=== PATIENT | male | born 1995 | race Caucasian/White ===

== ENCOUNTER 2019-11-20 10:37 | Emergency (ER) | payer BC, SELFPAY ==
--- NOTE | 2019-11-20 10:47 | ED.HA ---
HPI - Headache General Chief Complaint: Headache Stated Complaint: MATT Source: patient and RN notes reviewed Mode of arrival: ambulatory Limitations: no limitations History of Present Illness HPI Narrative: The obese patient, non-smoker/nondrinker, presents with 1 day worsening of over 10-year history of headaches. Patient states she has a gradual onset yesterday of frontal headache, like previous headaches that she gets bimonthly. No fever, URI?sinusitis, loss of taste/smell, lateralizing weakness, prior injury, speech?visual changes [eye prescription is current last month, as well as dentist visits]. Family members also have headaches, and she attributes it to insomnia sometimes [not menses, foods]. Symptoms are mild, w/ positional lightheadedness, associated with nausea-but not vomiting like in the past, so not the worst headache. And they 're usually relieved with OTC preparations like Motrin -that she is already taken without relief. Related Data Home Medications Medication Instructions Recorded Confirmed omeprazole 40 mg PO DAILY 11/20/19 11/20/19 Allergies Allergy/AdvReac Type Severity Reaction Status Date / Time No Known Allergies Allergy Verified 11/20/19 10:55 Review of Systems Review of Systems: Narrative: General/Constitutional: No weight loss,fever Eyes: N0: Redness,discharge Ears/Nose/Throat: No: Epistaxis,ear discharge Respiratory: Denies: Hemoptysis Gastrointestinal: No Vomiting today , Bleeding-rectal Skin: No Lumps, eruption Neurologic: No Focal Weakness,Sz Hematologic: Denies: Petechiae/Purpura Psychiatric: No: Suicida ideationl All Other Systems: Reviewed and Negative PMFSH Comments At time of signature, agree with nursing past medical, surgical, social and family history. There is no relevant family history pertinent to the presenting complaint Exam Narrative: Exam Narrative: General Appearance: Well appearing, No distress EYE: PERRLA, Conjunctiva clear Neurological: A&O x3, CN II-X intact Ears: External ear normal Nose: Normal nose Mouth/Throat: Normal appearing, Normal lips Neck: Supple Respiratory: Airway patent, No respiratory distress Musculoskeletal: Full ROM Skin: Warm, Dry Psychiatric: Normal mood, Normal affect Course Vital Signs Vital signs: Vital Signs Temperature 97.3 F L 11/20/19 10:53 Pulse Rate 65 11/20/19 10:53 Respiratory Rate 20 11/20/19 10:53 Blood Pressure 137/75 11/20/19 10:53 Pulse Oximetry 100 11/20/19 10:53 Temperature 97.3 F L 11/20/19 10:53 Pulse Rate 65 11/20/19 10:53 Respiratory Rate 20 11/20/19 10:53 Blood Pressure 137/75 11/20/19 10:53 Pulse Oximetry 100 11/20/19 10:53 Discharge Plan Discharge Clinical Impression: Headache disorder Patient Disposition: Home, Self-Care Condition: Stable Instructions: Migraine Headache (ED) Additional Instructions: Advised to go to higher-level care facility to higher level testing if not improved , because for early diagnosis of serious problems [sinus disease,lesions, etc], clear specific symptoms early Prescriptions: New tramadol 50 mg tablet 50 mg PO Q6H PRN (Reason: pain) Qty: 15 RF: 1 esqujpodim-fxsmpocuvgruw-rlzl [Fioricet] 50-300-40 mg capsule 1 cap PO HS PRN (Reason: pain) Qty: 14 RF: 0 prochlorperazine maleate [Compazine] 10 mg tablet 10 mg PO Q8H PRN (Reason: nausea and vomiting) Qty: 10 RF: 1 No Action omeprazole 40 mg Capsule,Delayed Release(Dr/Ec) 40 mg PO DAILY RF: 0 Interventions: Discharge Disposition Last Done: 11/20/19 11:19 Follow-up/Referrals: UNKNOWN,DOCTOR [Primary Care Provider] - Discharge Date/Time: 11/20/19 11:20
[2019-11-20 10:53] VITALS: BP 137/75; PULSE 65; RESP 20; TEMP 36.3; O2SAT 100
== END 2019-11-20 11:20 | disposition home or self-care (01) ==
PROVIDERS: Emergency Provider Emergency Medicine
DX: R51 Headache (principal); E66.9 Obesity, unspecified; Z68.43 Body mass index [BMI] 50.0-59.9, adult
CPT/HCPCS: 99213; G0463

== ENCOUNTER 2020-01-20 16:27 | Outpatient (CLI) | payer BC, OTHER, SELFPAY ==
--- NOTE | ~2020-01-20 | US_ITS ---
EXAMINATION: US pelvic complete w TV DATE: 01/20/2020 17:01 INDICATION: Pelvic pain TECHNIQUE: Multiple transabdominal and endovaginal sonographic images of the pelvis were obtained. COMPARISON: None. FINDINGS: The uterus measures 8.4 x 4.3 x 6.0 cm. The endometrial complex measures 7 mm nabothian cys ts are noted in the cervix. The right ovary measures 3.4 x 2.3 x 2.5 cm. The left ovary measures 2.9 x 1.9 x 2.2 cm. There is normal vascular flow in the ovaries. There is no free fluid in the pelvis. IMPRESSION: 1. No sonographic correlate for the patient's symptoms. Reviewed, dictated and finalized at location A.
== END 2020-01-20 16:28 | disposition home or self-care (01) ==
PROVIDERS: PCP Nurse Practitioner; Visit Provider Nurse Practitioner
DX: R10.2 Pelvic and perineal pain (principal)
CPT/HCPCS: 76830; 76856

== ENCOUNTER 2020-04-22 11:36 | Emergency (ER) | payer OTHER, SELFPAY ==
[2020-04-22 11:43] VITALS: BP 133/77; PULSE 66; RESP 17; TEMP 36.5; O2SAT 100
--- NOTE | 2020-04-22 11:56 | ED.ABDPAIN ---
HPI - Abdominal Pain General Chief Complaint: Abdominal Pain Stated Complaint: lower abdominal pain Time Seen by Provider: 04/22/20 11:43 Source: patient Mode of arrival: ambulatory Limitations: no limitations History of Present Illness HPI narrative: Patient is a 25-year-old female complaining of lower abdominal pain, 3 out of 10, described as cramping, nonradiating started 30 minutes ago. Patient denies any nausea, vomiting, diarrhea, fever, chills or urinary symptoms. Patient denies any vaginal bleeding or discharge. Related Data Home Medications Medication Instructions Recorded Confirmed omeprazole 40 mg PO DAILY 11/20/19 11/20/19 Allergies Allergy/AdvReac Type Severity Reaction Status Date / Time mushroom Allergy Mild hives Verified 04/22/20 11:49 Review of Systems Review of Systems: All systems reviewed & are unremarkable except as noted in HPI and below Constitutional: Constitutional: Denies body ache(s), Denies chills, Denies excessive sweating, Denies fatigue, Denies fever(s), Denies headache(s), Denies lethargy, Denies malaise, Denies weakness and Denies weight loss Eyes: Eyes: Denies blurry vision, Denies change in vision and Denies loss of vision ENT: Denies dizziness, Denies ear discharge, Denies headache(s), Denies lip swelling, Denies epistaxis, Denies nasal congestion, Denies neck pain, Denies throat swelling and Denies tongue swelling Cardiovascular: Cardiovascular: Denies chest pain, Denies chest pain at rest, Denies chest pain with activity, Denies diaphoresis, Denies rapid heart rate, Denies edema, Denies irregular heart rhythm, Denies lightheadedness, Denies palpitations, Denies dyspnea and Denies dyspnea on exertion Respiratory: Respiratory: Denies chest congestion, Denies cough, Denies hemoptysis, Denies dyspnea and Denies dyspnea on exertion Gastrointestinal: Gastrointestinal: Denies melena, Denies hematochezia, Denies diarrhea, Denies nausea, Denies vomiting and Denies hematemesis Musculoskeletal: Musculoskeletal: Denies abnormal gait, Denies deformity, Denies joint swelling, Denies limited range of motion, Denies neck pain and Denies numbness Neurologic: Denies Abnormal speech present, Denies abnormal gait, Denies confusion, Denies dizziness, Denies headache(s), Denies focal weakness, Denies loss of vision, Denies numbness, Denies Other visual disturbances, Denies Sensory deficit (Neuro) and Denies weakness Psychiatric: Psychiatric: Denies confusion, Denies depression, Denies auditory hallucinations, Denies homicidal ideation and Denies suicidal ideation Endocrine: Endocrine: Denies cold intolerance, Denies excessive sweating, Denies fatigue, Denies heat intolerance and Denies palpitations Hematologic/Lymphatic: Hematologic/Lymphatic: Denies easy bleeding and Denies easy bruising Allergic/Immunologic: Allergic/Immunologic: Denies lip swelling, Denies throat swelling and Denies tongue swelling PMFSH Past Medical History Medical History (Updated 04/22/20 @ 13:13 by Lex Guerin MD) Gestational diabetes Family History Family History (Updated 02/26/20 @ 10:04 by Alexandra Abdullahi MD) Mother Diabetes mellitus Heart disease Hypertension Cervical ca Father Heart disease Kidney disease, chronic, stage IV (GFR 15-29 ml/min) Social History Social History (Updated 02/26/20 @ 09:43 by Tika Flores) Social History: Single Smoking status: Never smoker Second hand tobacco smoke exposure: No Alcohol intake: current Drinks per week: 2 Substance use: current Substance use type: marijuana Last use: Once a month pt smokes marijuana Additional living arrangements comments: Pt has a daughter that lives with her Gender identity (if verbalized by the patient): Female Exam Const: General: cooperative, healthy appearing, comfortable, no acute distress, well developed, alert and awake; No confusion Orientation/consciousness: oriented to person, orie
[2020-04-22 12:05] LABS: Basophils Percent Auto 0.4 % (0.2-1.2); Eosinophils Absolute Auto 0.2 K/mm3 (0-0.3); Eosinophils Percent Auto 2.4 % (0-4.4); Hematocrit 36.8 % (37.0-47.0); Hemoglobin 11.4 g/dL (12.0-15.0); Immature Granulocyte Absolute 0.09 K/mm3 (0.00-0.031); Lymphocytes Absolute Auto 3.26 K/mm3 (0.9-3.2); Lymphocytes Percent Auto 36.5 % (18.3-44.2); Mean Corpuscular Hemoglobin 27.5 pg (26-34); Mean Corpuscular Volume 88.9 fl (80-100); Mean Platelet Volume 12.2 fl (7.4-10.4); Monocytes Absolute Auto 0.8 K/mm3 (0.1-0.6); Monocytes Percent Auto 9.3 % (2.6-8.5); Neutrophils Absolute Auto 4.5 K/mm3 (1.3-6.7); Neutrophils Percent Auto 50.4 % (45.5-73.1); Platelet Count Result 312 k/mm3 (150-375); Red Blood Count 4.14 M/mm3 (4.2-5.4); Red Cell Distribution Width 15.1 % (11.5-14.5); White Blood Count 8.9 K/mm3 (4.5-10.0)
[2020-04-22 12:12] LABS: Add Urine Microscopic? YES; Appearance Urine Clear (Clear); Bacteria Urine Trace /hpf; Bilirubin Urine Negative (Negative); Blood Urine Negative (Negative); Color Urine Yellow (Yellow); Glucose Urine UA Negative (Negative); Ketones Urine Negative (Negative); Leukocyte Esterase Ur Trace LEU/UL (Negative); Mucus Urine Rare /lpf; Nitrate Urine Negative (Negative); Protein Urine 2+ mg/dL (Negative); RBC Urine 0-2 /hpf (0-2); Specific Grav Ur 1.015 (1.001-1.035); Squamous Epithelial Cell Urine Many /hpf (Few); Urobilinogen Urine Negative mg/dL (<2.0); WBC Urine 0-3 /hpf
[2020-04-22 12:13] LABS: Alanine Aminotransferase 30 U/L (4-35); Albumin Level 4.3 g/dL (3.5-5.1); Alkaline Phosphatase 98 U/L (38-126); Anion Gap 8 mmol/L (8-16); Aspartate Amino Transferase 39 U/L (14-36); Bilirubin,Total 0.3 mg/dL (0.2-1.3); Blood Urea Nitrogen 7 mg/dL (7-17); Calcium 9.4 mg/dL (8.4-10.2); Carbon Dioxide 29 mmol/L (22-30); Chloride 101 mmol/L (98-107); Estimated CRCL calculation 122 ml/min; Estimated Glomerular Filt Rate > 60; Glucose 102 mg/dL (65-105); Lipase 79 U/L (23-300); Potassium 4.1 mmol/L (3.4-5.0); Sodium 138 mmol/L (137-145)
[2020-04-22] MEDS: ACETAMINOPHEN 500 MG TABLET 1000 MG PO (12:46)
[2020-04-22] MEDS: KETOROLAC 30 MG/ML VIAL (*BKC) IV PUSH (12:46)
[2020-04-22 12:47] VITALS: BP 148/90; PULSE 63; RESP 16; O2SAT 100
[2020-04-22 13:39] VITALS: BP 112/78; PULSE 88; RESP 17; O2SAT 99
== END 2020-04-22 13:40 | disposition home or self-care (01) ==
PROVIDERS: Emergency Provider Emergency Medicine; PCP Family Medicine
DX: R10.30 Lower abdominal pain, unspecified (principal)
CPT/HCPCS: 36415; 80053; 81001; 81025; 83690; 85025; 96374; 99284; A9270; J1885

== ENCOUNTER 2021-09-22 12:55 | Day surgery (SDC) | payer OTHER, SELFPAY ==
[2021-09-22] VITALS (14 sets, daily range): BP systolic 120–160; BP diastolic 59–92; PULSE 56–93; RESP 14–20; TEMP 36.2–36.7; O2SAT 16–100
--- NOTE | ~2021-09-22 | CT_ITS ---
EXAMINATION: CT abdomen pelvis wo con DATE: 09/22/2021 16:20 INDICATION: Right lower quadrant abdominal pain TECHNIQUE: Computed tomography (CT) of the abdomen and pelvis was performed without intravenous contr ast. Automated exposure control and iterative reconstruction technique were employed. Exam dose: 125 1.86 mGy-cm total exam DLP. COMPARISON: None. FINDINGS: The lung bases are clear. Heart size is normal. No pericardial or pleural effusion. Status post cholecystectomy. The liver, spleen, pancreas, and adrenal glands and kidneys are unremarkable. No bile duct or pancrea tic duct dilatation. The uterus, adnexal areas and urinary bladder are unremarkable. Normal caliber of the abdominal aorta. No intraperitoneal or retroperitoneal or pelvic mass lesion or adenopathy or ascites. There is a 5 x 6.7 mm calcified appendicolith at the tip of the appendix. Appendix is of normal calib er. No periappendiceal fat stranding or fluid. There are some distal small bowel air-fluid levels, in the lower mid pelvis, suggesting mild adynamic ileus. No bowel obstruction, bowel wall thickening, pneumatosis or intraperitoneal free air. Small fat-containing umbilical hernia. IMPRESSION: 5 x 6.7 mm calcified appendicolith at the tip of the appendix and mild adynamic ileus; a ppendicitis or impending appendicitis is suspected. Reviewed, dictated and finalized at [facility]. Reviewed, dictated and finalized at [facility]. IMPRESSION: 5 x 6.7 mm calcified appendicolith at the tip of the appendix and mild adynamic ileus; appendicitis or impending appendicitis is suspected.
--- NOTE | ~2021-09-22 | US_ITS ---
EXAMINATION: US pelvic complete w TV DATE: 09/22/2021 15:51 INDICATION: Right adnexal pain. TECHNIQUE: Multiple transabdominal and transvaginal sonographic images of the pelvis were obtained. COMPARISON: Ultrasound 01/20/2020 FINDINGS: TRANSABDOMINAL ULTRASOUND: The uterus measures 7.1 x 4.5 x 4.5 cm. There is no free fluid in the pelvis. TRANSVAGINAL ULTRASOUND: The endometrial complex measures 10 mm in thickness. There are nabothian cysts in the cervix. The rig ht ovary measures 3.3 x 1.8 x 2.3 cm. The left ovary measures 2.0 x 4.1 x 2.3 cm. There is normal vas cular flow in the ovaries. IMPRESSION: 1. Normal pelvis. Reviewed, dictated and finalized at [facility]. IMPRESSION: 1. Normal pelvis.
[2021-09-22 13:18] LABS: Basophils Absolute Auto 0.1 K/mm3 (0.0-0.1); Basophils Percent Auto 0.6 % (0.2-1.2); Eosinophils Absolute Auto 0.1 K/mm3 (0-0.3); Hematocrit 37.9 % (37.0-47.0); Hemoglobin 11.5 g/dL (12.0-15.0); Immature Granulocyte Absolute 0.03 K/mm3 (0.00-0.031); Immature Granulocyte Percent A 0.3 % (0-0.5); Lymphocytes Absolute Auto 2.77 K/mm3 (0.9-3.2); Lymphocytes Percent Auto 29.9 % (18.3-44.2); Mean Corpuscular HGB Conc 30.3 g/dl (32-36); Mean Corpuscular Hemoglobin 27.6 pg (26-34); Mean Corpuscular Volume 90.9 fl (80-100); Mean Platelet Volume 12.7 fl (7.4-10.4); Monocytes Absolute Auto 0.7 K/mm3 (0.1-0.6); Monocytes Percent Auto 7.1 % (2.6-8.5); Neutrophils Absolute Auto 5.7 K/mm3 (1.3-6.7); Neutrophils Percent Auto 61.1 % (45.5-73.1); Platelet Count Result 251 k/mm3 (150-375); Red Blood Count 4.17 M/mm3 (4.2-5.4); Red Cell Distribution Width 15.9 % (11.5-14.5); White Blood Count 9.3 K/mm3 (4.5-10.0)
[2021-09-22 13:35] LABS: Alanine Aminotransferase 32 U/L (6-35); Albumin Level 4.7 g/dL (3.5-5.1); Alkaline Phosphatase 96 U/L (38-126); Anion Gap 6 mmol/L (8-16); Aspartate Amino Transferase 37 U/L (14-36); Bilirubin,Total 0.6 mg/dL (0.2-1.3); Blood Urea Nitrogen 7 mg/dL (7-17); Calcium 9.1 mg/dL (8.4-10.2); Carbon Dioxide 24 mmol/L (22-30); Chloride 107 mmol/L (98-107); Estimated CRCL calculation 89 ml/min; Estimated Glomerular Filt Rate > 60; Glucose 101 mg/dL (65-110); Lipase 75 U/L (23-300); Potassium 4.2 mmol/L (3.4-5.0); Sodium 137 mmol/L (137-145)
[2021-09-22 13:36] LABS: Appearance Urine Slightly Cloudy (Clear); Bilirubin Urine Negative (Negative); Blood Urine Negative (Negative); Color Urine Yellow (Yellow); Glucose Urine UA Negative (Negative); Ketones Urine Negative (Negative); Leukocyte Esterase Ur 1+ LEU/UL (Negative); Nitrate Urine Negative (Negative); Protein Urine 2+ mg/dL (Negative); Specific Grav Ur 1.025 (1.001-1.035); Urobilinogen Urine 0.2 mg/dL (<2.0); pH Urine 6.5 (5.0-9.0)
[2021-09-22 13:42] LABS: Add Urine Microscopic? YES
--- NOTE | 2021-09-22 14:31 | PC.NURSE ---
pt to desk asking for wait time. pt upset she has seen 3 other people go into back before her. it was explained to pt that we do not bring pts to rooms based on arrival time.
--- NOTE | 2021-09-22 15:20 | PC.NURSE ---
Patient to ultrasound.
[2021-09-22] MEDS: MORPHINE SULFATE (*CRX) 4 MG/ML INJ IV PUSH (16:11)
[2021-09-22] MEDS: ONDANSETRON INJ 4 MG/2 ML VIAL IV PUSH (16:11)
--- NOTE | 2021-09-22 16:44 | ED.ABDPAIN ---
HPI - Abdominal Pain General Chief Complaint: Abdominal Pain Stated Complaint: pelvic pain Time Seen by Provider: 09/22/21 15:14 History of Present Illness HPI narrative: Patient is a 26-year-old female who presents ER with lower abdominal pain. Began last night and has increased throughout the evening and the day. She feels like she has pressure going into her pelvic floor. Pain is worse on the right side. No nausea or vomiting. Worse with any type of movement. Most comfortable if she is standing up. Has history of PCOS. No vaginal bleeding or vaginal discharge. LMP 09/07/2021. No concerns for STI per patient. Related Data Allergies Allergy/AdvReac Type Severity Reaction Status Date / Time mushroom Allergy Mild hives Verified 09/22/21 18:13 Review of Systems Review of Systems: All systems reviewed & are unremarkable except as noted in HPI and below Constitutional: Constitutional: Denies chills and Denies fever(s) Gastrointestinal: Gastrointestinal: Reports abdominal pain, Denies constipation, Denies nausea and Denies vomiting Genitourinary: Genitourinary: Denies abnormal vaginal bleeding, Denies hematuria, Denies nocturia, Denies dysuria, Reports pelvic pain, Denies flank pain and Denies vaginal discharge Musculoskeletal: Musculoskeletal: Denies back pain and Denies muscle cramps PMFSH Past Medical History Medical History Abnormal Pap smear of cervix 2020 Anemia Anxiety Asthma Chronic GERD Morbid (severe) obesity due to excess calories Polycystic ovary syndrome Vaginal delivery x1 Surgical History Surgical History History of cholecystectomy 11/2011 History of tonsillectomy 2016 Family History Family History Mother Diabetes mellitus Heart disease Cervical ca Dx age 25 Anxiety and depression Father Heart disease Kidney disease, chronic, stage IV (GFR 15-29 ml/min) Asthma Lung cancer Hypertension Anxiety and depression Daughter Asthma Grandparent Lung cancer Anxiety and depression Heart disease Sibling Anxiety and depression Social History Social History Smoking status: Never smoker Second hand tobacco smoke exposure: No Alcohol intake: current Alcohol use details: socially Substance use: current Substance use type: marijuana Last use: occassionally Additional living arrangements comments: Pt has a daughter that lives with her Gender identity (if verbalized by the patient): Female Sexual Orientation (if Verbalized by the Patient): Straight or Heterosexual Agree to blood products: Yes Exam Narrative: GENERAL: Uncomfortable-appearing, well-nourished, and in no acute distress. HEAD: Normocephalic, atraumatic. EYES: PERRL and EOMI. ENT: Mucous membranes moist. CHEST: Clear to auscultation. No respiratory distress. HEART: Regular rate and rhythm. Normal peripheral pulses. ABDOMEN: Soft, tender palpation right lower quadrant with guarding, nondistended. EXTREMITIES: Normal range of motion. No edema. SKIN: Warm, dry, no rash. NEURO: Alert and oriented x3. PSYCH: Normal mood and affect. Course Course Emergency Course: Discussed with general surgery. They will take patient to the operating room tonight. Patient last had water at 12:30 PM. She has not eaten since yesterday. Zafra for antibiotic. Vital Signs Vital signs: Vital Signs Temperature 98.1 F 09/22/21 12:56 Pulse Rate 62 09/22/21 12:56 Respiratory Rate 16 09/22/21 12:56 Blood Pressure 139/60 09/22/21 12:56 Pulse Oximetry 16 L 09/22/21 12:56 Oxygen Delivery Room Air 09/22/21 12:56 Temperature 97.6 F 09/22/21 18:05 Pulse Rate 56 L 09/22/21 18:05 Respiratory Rate 14 09/22/21 18:05 Blood Pressure 120/75 09/22/21 18:05 Pulse Oximetry
--- NOTE | 2021-09-22 17:34 | WPDANESEPP ---
Anes - Eval Pre Procedure Procedure: Laparoscopic appendectomy Date/Time: 09/22/21 17:34 Surgeon: ruy Preop Diagnosis: acute appendicitis Pre Op Diagnosis: pelvic pain Patient Data Age: 26 Gender: F Height: 1.57 m Weight: 114.3 kg Last Vital Signs Temp 36.7 C 09/22/21 16:41 Pulse 67 09/22/21 15:20 Resp 18 09/22/21 15:20 BP 160/72 H 09/22/21 15:20 Pulse Ox 100 09/22/21 15:20 O2 Del Method Room Air 09/22/21 15:20 Allergies Allergy/AdvReac Type Severity Reaction Status Date / Time mushroom Allergy Mild hives Verified 06/01/21 09:50 Home Medications Medication Instructions Recorded Confirmed Type albuterol sulfate 90 mcg/actuation 2 inh inhalation Q4H PRN shortness 11/03/20 11/03/20 Rx aerosol inhaler (ProAir HFA) of breath or wheezing #8.5 grams etonogestrel 0.12 mg-ethinyl 1 vag ring vaginal ONCE #3 ea 07/22/21 Rx estradiol 0.015 mg/24 hr vaginal ring (NuvaRing) Laboratory Tests 09/22/21 09/22/21 09/22/21 13:07 13:07 13:07 WBC 9.3 K/mm3 K/mm3 (4.5-10.0) RBC 4.17 M/mm3 L M/mm3 (4.2-5.4) Hgb 11.5 g/dL L g/dL (12.0-15.0) Hct 37.9 % % (37.0-47.0) MCV 90.9 fl fl (80-100) MCH 27.6 pg pg (26-34) MCHC 30.3 g/dl L g/dl (32-36) RDW 15.9 % H % (11.5-14.5) Plt Count 251 k/mm3 k/mm3 (150-375) MPV 12.7 fl H fl (7.4-10.4) Immature Gran % (Auto) 0.3 % % (0-0.5) Neut % (Auto) 61.1 % % (45.5-73.1) Lymph % (Auto) 29.9 % % (18.3-44.2) [place] % (Auto) 7.1 % % (2.6-8.5) Eos % (Auto) 1.0 % % (0-4.4) Baso % (Auto) 0.6 % % (0.2-1.2) Lymph # (Auto) 2.77 K/mm3 K/mm3 (0.9-3.2) [place] # (Auto) 0.7 K/mm3 H K/mm3 (0.1-0.6) Eos # (Auto) 0.1 K/mm3 K/mm3 (0-0.3) Baso # (Auto) 0.1 K/mm3 K/mm3 (0.0-0.1) Abs Immat Gran (auto) 0.03 K/mm3 K/mm3 (0.00-0.031) Absolute Neuts (auto) 5.7 K/mm3 K/mm3 (1.3-6.7) Absolute Nucleated RBC 0.0 K/mm3 K/mm3 (0.0-0.012) Nucleated RBC % 0.0 % % (0.0-0.2) Sodium 137 mmol/L mmol/L (137-145) Potassium 4.2 mmol/L mmol/L (3.4-5.0) Chloride 107 mmol/L mmol/L (98-107) Carbon Dioxide 24 mmol/L mmol/L (22-30) Anion Gap 6 mmol/L L mmol/L (8-16) BUN 7 mg/dL mg/dL (7-17) Creatinine 1.00 mg/dL mg/dL (0.7-1.0) Estim Creat Clear Calc 89 ml/min ml/min Estimated GFR > 60 (59 - ) Glucose 101 mg/dL mg/dL (65-110) Calcium 9.1 mg/dL mg/dL (8.4-10.2) Total Bilirubin 0.6 mg/dL mg/dL (0.2-1.3) AST 37 U/L H U/L (14-36) ALT 32 U/L U/L (6-35) Alkaline Phosphatase 96 U/L U/L (38-126) Total Protein 8.0 g/dL g/dL (6.3-8.2) Albumin 4.7 g/dL g/dL (3.5-5.1) Lipase 75 U/L U/L (23-300) Urine Color Yellow (Yellow) Urine Appearance Slightly cloudy (Clear) Urine pH 6.5 (5.0-9.0) Ur Specific [place] 1.025 (1.001-1.035) Urine Protein 2+ mg/dL H mg/dL (Negative) Urine Glucose (UA) Negative mg/dL mg/dL (Negative) Urine Ketones Negative mg/dL mg/dL (Negative) Ur Blood (Man) Negative (Negative) Urine Nitrate Negative (Negative) Urine Bilirubin Negative (Negative) Urine Urobilinogen 0.2 mg/dL mg/dL (<2.0) Leukocyte Esterase Rfl 1+ RUSTY/UL H RUSTY/UL (Negative) Patient hx anesthesia problems: none Family hx anesthesia problems: none Results Review: All pre-operative results and documents have been reviewed as part of the pre-operative evaluation. [facility] Past Medical History Medical History (Updated 06/01/21 @ 10:09 by Charo Barnhart MD) Abnormal Pap smear of cervix 2020
[2021-09-22] MEDS: LACTATED RINGERS 1,000 ML 30 ML IV CONT ×2 (18:15→20:17)
--- NOTE | 2021-09-22 18:15 | PM.IMHP ---
H&P: HPI History of Present Illness Date/Time: 09/22/21 18:15 Chief Complaint: lower abdominal pain Narrative: Pt is a 26 y/o F presenting to ED c/o 1 d h/o lower abdominal pain, R>L. Pt reports pain is dull, constant. Pt reports some associated nausea, decreased appetite. Pt denies any previous episodes. Review of Systems Constitutional: Constitutional: Reports anorexia, Denies chills, Denies fatigue, Denies fever(s), Denies lethargy, Denies malaise, Reports poor appetite, Denies weight gain and Denies weight loss Eyes: Eyes: Reports as per HPI ENT: Reports system reviewed and no additional complaints, except as documented Cardiovascular: Cardiovascular: Reports no additional cardiovascular complaints Respiratory: Respiratory: Reports no additional respiratory complaints Gastrointestinal: Gastrointestinal: Reports as per HPI, Reports abdominal pain, Denies change in stool character, Denies early satiety, Reports nausea and Denies vomiting Genitourinary: Genitourinary: Reports no additional female genitourinary complaints Musculoskeletal: Musculoskeletal: Reports no additional musculoskeletal complaints Integumentary/Breasts: Skin/Breast: Reports system reviewed and no additional complaints, except as docu Neurologic: Reports system reviewed and no additional complaints, except as documented Psychiatric: Psychiatric: Reports no additional psychiatric complaints Endocrine: Endocrine: Reports no additional endocrine complaints Hematologic/Lymphatic: Hematologic/Lymphatic: Reports no additional hematologic/lymphatic complaints Allergic/Immunologic: Allergic/Immunologic: Reports no additional allergic/immunologic complaints [facility] Past Medical History Medical History Abnormal Pap smear of cervix 2020 Anemia Anxiety Asthma Chronic GERD Morbid (severe) obesity due to excess calories Polycystic ovary syndrome Vaginal delivery x1 Surgical History Surgical History History of cholecystectomy 11/2011 History of tonsillectomy 2017 Family History Family History Mother Diabetes mellitus Heart disease Cervical ca Dx age 25 Anxiety and depression Father Heart disease Kidney disease, chronic, stage IV (GFR 15-29 ml/min) Asthma Lung cancer Hypertension Anxiety and depression Daughter Asthma Grandparent Lung cancer Anxiety and depression Heart disease Sibling Anxiety and depression Social History Social History Smoking status: Never smoker Second hand tobacco smoke exposure: No Alcohol intake: current Alcohol use details: socially Substance use: current Substance use type: marijuana Last use: occassionally Additional living arrangements comments: Pt has a daughter that lives with her Gender identity (if verbalized by the patient): Female Sexual Orientation (if Verbalized by the Patient): Straight or Heterosexual Agree to blood products: Yes Meds Home Medications and Allergies Home Medications Medication Instructions Recorded Confirmed Type albuterol sulfate 90 mcg/actuation 2 inh inhalation Q4H PRN shortness 11/03/20 11/03/20 Rx aerosol inhaler (ProAir HFA) of breath or wheezing #8.5 grams etonogestrel 0.12 mg-ethinyl 1 vag ring vaginal ONCE #3 ea 07/22/21 Rx estradiol 0.015 mg/24 hr vaginal ring (NuvaRing) Allergies Allergy/AdvReac Type Severity Reaction Status Date / Time mushroom Allergy Mild hives Verified 09/22/21 18:13 Vital Signs Vital Signs - 24 hr 09/22/21 12:56 09/22/21 15:20 09/22/21 16:41 Temperature 36.7 C 36.7 C Pulse Rate 62 67 Respiratory Rate 16 18 Blood Pressure 139/60 160/72 H Pulse Oximetry 16 L 100 Oxygen Delivery Room Air Room Air 09/22/21 17:37 09/22/21 18:05 Temperature
--- NOTE | 2021-09-22 18:22 | WPDHPUPDATE1 ---
History and Physical Update Update Date/Time: 09/22/21 18:22 History and Physical has been reviewed, including an updated exam of the patient. There are NO changes in the patient's condition. Risks, benefits, and alternatives have been discussed and questions answered. Patient agrees to proceed with procedure.
--- NOTE | 2021-09-22 18:37 | WPDANESEPPF ---
Anes - Initial Pre Proc Eval Procedure: Operation Date: 09/22/21 18:15 Proposed Procedures p Laparoscopic Appendectomy - Yajaira Harper MD Date/Time: 09/22/21 18:37 Surgeon: Yajaira Harper MD Pre Op Diagnosis: pelvic pain Patient Data Age: 26 Gender: F Height: 1.57 m Weight: 114.3 kg Last Vital Signs Temp 36.4 C 09/22/21 18:05 Pulse 56 L 09/22/21 18:05 Resp 14 09/22/21 18:05 BP 120/75 09/22/21 18:05 Pulse Ox 100 09/22/21 18:05 O2 Del Method Room Air 09/22/21 18:05 Allergies Allergy/AdvReac Type Severity Reaction Status Date / Time mushroom Allergy Mild hives Verified 09/22/21 18:13 Home Medications Medication Instructions Recorded Confirmed Type albuterol sulfate 90 mcg/actuation 2 inh inhalation Q4H PRN shortness 11/03/20 11/03/20 Rx aerosol inhaler (ProAir HFA) of breath or wheezing #8.5 grams etonogestrel 0.12 mg-ethinyl 1 vag ring vaginal ONCE #3 ea 07/22/21 Rx estradiol 0.015 mg/24 hr vaginal ring (NuvaRing) Laboratory Tests 09/22/21 09/22/21 09/22/21 13:07 13:07 13:07 WBC 9.3 K/mm3 K/mm3 (4.5-10.0) RBC 4.17 M/mm3 L M/mm3 (4.2-5.4) Hgb 11.5 g/dL L g/dL (12.0-15.0) Hct 37.9 % % (37.0-47.0) MCV 90.9 fl fl (80-100) MCH 27.6 pg pg (26-34) MCHC 30.3 g/dl L g/dl (32-36) RDW 15.9 % H % (11.5-14.5) Plt Count 251 k/mm3 k/mm3 (150-375) MPV 12.7 fl H fl (7.4-10.4) Immature Gran % (Auto) 0.3 % % (0-0.5) Neut % (Auto) 61.1 % % (45.5-73.1) Lymph % (Auto) 29.9 % % (18.3-44.2) [place] % (Auto) 7.1 % % (2.6-8.5) Eos % (Auto) 1.0 % % (0-4.4) Baso % (Auto) 0.6 % % (0.2-1.2) Lymph # (Auto) 2.77 K/mm3 K/mm3 (0.9-3.2) [place] # (Auto) 0.7 K/mm3 H K/mm3 (0.1-0.6) Eos # (Auto) 0.1 K/mm3 K/mm3 (0-0.3) Baso # (Auto) 0.1 K/mm3 K/mm3 (0.0-0.1) Abs Immat Gran (auto) 0.03 K/mm3 K/mm3 (0.00-0.031) Absolute Neuts (auto) 5.7 K/mm3 K/mm3 (1.3-6.7) Absolute Nucleated RBC 0.0 K/mm3 K/mm3 (0.0-0.012) Nucleated RBC % 0.0 % % (0.0-0.2) Sodium 137 mmol/L mmol/L (137-145) Potassium 4.2 mmol/L mmol/L (3.4-5.0) Chloride 107 mmol/L mmol/L (98-107) Carbon Dioxide 24 mmol/L mmol/L (22-30) Anion Gap 6 mmol/L L mmol/L (8-16) BUN 7 mg/dL mg/dL (7-17) Creatinine 1.00 mg/dL mg/dL (0.7-1.0) Estim Creat Clear Calc 89 ml/min ml/min Estimated GFR > 60 (59 - ) Glucose 101 mg/dL mg/dL (65-110) Calcium 9.1 mg/dL mg/dL (8.4-10.2) Total Bilirubin 0.6 mg/dL mg/dL (0.2-1.3) AST 37 U/L H U/L (14-36) ALT 32 U/L U/L (6-35) Alkaline Phosphatase 96 U/L U/L (38-126) Total Protein 8.0 g/dL g/dL (6.3-8.2) Albumin 4.7 g/dL g/dL (3.5-5.1) Lipase 75 U/L U/L (23-300) Urine Color Yellow (Yellow) Urine Appearance Slightly cloudy (Clear) Urine pH 6.5 (5.0-9.0) Ur Specific [place] 1.025 (1.001-1.035) Urine Protein 2+ mg/dL H mg/dL (Negative) Urine Glucose (UA) Negative mg/dL mg/dL (Negative) Urine Ketones Negative mg/dL mg/dL (Negative) Ur Blood (Man) Negative (Negative) Urine Nitrate Negative (Negative) Urine Bilirubin Negative (Negative) Urine Urobilinogen 0.2 mg/dL mg/dL (<2.0) Leukocyte Esterase Rfl 1+ RUSTY/UL H RUSTY/UL (Negative) Patient hx anesthesia problems: none Family hx anesthesia problems: none Results Review: All pre-operative results and documents have been reviewed as part of the pre-operative evaluation. [facility] Past Medical History Medical History (Reviewed 09/22/21 @ 1
[2021-09-22] MEDS: BUPIVACAINE HCL 0.5% PF 30 ML VIAL INFILTRATE (19:15)
--- NOTE | 2021-09-22 19:19 | W.PM.PROC2 ---
Procedure Note - Detailed Date of Procedure 09/22/21 Pre-op Diagnosis acute appendicitis Post-op Diagnosis Same Procedure Performed laparoscopic appendectomy Surgeon Yajaira Harper MD Anesthesia General Indications 26 y/o F c early acute appendicitis Findings early acute appendicitis c noted fecalith at tip Description of Procedure The patient was taken to the operating room and placed in the supine position. After adequate induction of general anesthesia, the patient was prepped and draped in the normal sterile fashion. A time-out was then done to verify the patient's identity, as well as the procedure being performed. I began by making a 5 mm incision in the infraumbilical region, through this a Veress needle was placed in the peritoneal cavity. CO2 gas was then insufflated and after adequate pneumoperitoneum was achieved the Veress needle was removed. Then placed a 5 mm Optiview trocar under direct visualization into the peritoneal cavity. I then insufflated through this trocar site and the endoscope was placed into the trocar. Under direct visualization, placed 2 further ports, a 5 mm suprapubic port as well as an additional 12 mm port in the left lower abdomen. At this point identified the cecum, I retracted the cecum both medially and superiorly allowing me to expose the appendix. The appendix was noted to be dilated and injected especially towards the tip. The appendix was noted to be adherent to the right lateral sidewall. I was able to bluntly dissect the appendix from these adhesions. I then was able to locate the base of the appendix with the cecum. I created a window with the [place] dissector between the appendix itself and the mesoappendix. I then transected the mesoappendix with a white vascular staple load. The Endo-SHLOMO was then reloaded with a blue staple load and I transected the base of the appendix. Once the specimen was completely detached, an endo-pouch was placed into the 12 mm port site and the specimen was removed through the endo-pouch. The appendiceal specimen will be sent to pathology for further review. I then copiously irrigated the right lower quadrant. Hemostasis was noted at both staple lines no other pathology was seen in this area. I then moved the camera to the suprapubic port to check our its port of entry. No iatrogenic injury or other pathology was noted in the upper abdomen. I then closed the 12 mm port site with a Lakhwinder code and 0 Vicryl suture under direct visualization. At this point, the abdomen was desufflated and all ports were removed. All port sites were closed with 4 Monocryl subcuticular suture. Dermabond was placed on all wounds. The patient tolerated the procedure well and was extubated in the operating room postop. She will be sent to the recovery room in stable condition. Estimated Blood Loss 5 Drains No Packing No Pathology Yes Complications No immediate complications Condition Stable Disposition PACU [facility] Billing Surgery - Charge Forward: Surgery Billing
[2021-09-22] MEDS: fentaNYL CITRATE INJ (*CRX) 100 MCG/2 ML VIAL 25 MCG IV PUSH ×6 (19:46→20:31)
[2021-09-22] MEDS: oxyCODONE HCL (*CRX) 5 MG TAB IR PO (20:46)
== END 2021-09-22 21:30 | disposition home or self-care (01) ==
LOC: ANHED 15:58 → ANHSURGERY 17:34
PROVIDERS: Emergency Provider Emergency Medicine; PCP Family Medicine; Visit Provider Surgery
PROC: 0DTJ4ZZ Resection of Appendix, Percutaneous Endoscopic Approach (ICD-10-PCS; CPT 44970; principal; 2021-09-22 18:15)
DX: K35.80 Unspecified acute appendicitis (principal); R10.2 Pelvic and perineal pain; Z79.51 Long term (current) use of inhaled steroids; F41.9 Anxiety disorder, unspecified; K21.9 Gastro-esophageal reflux disease without esophagitis; D64.9 Anemia, unspecified; E28.2 Polycystic ovarian syndrome; J45.909 Unspecified asthma, uncomplicated; Z90.49 Acquired absence of other specified parts of digestive tract; F12.90 Cannabis use, unspecified, uncomplicated; E66.01 Morbid (severe) obesity due to excess calories; Z68.42 Body mass index [BMI] 45.0-49.9, adult
CPT/HCPCS: 44970; 36415; 74176; 76830; 76856; 80053; 81001; 83690; 85025; 88304; 96365; 96375; 99285; A9270; J0330; J1100; J2250; J2270; J2405; J2543; J2704; J2710; J3010; J7030; J7120

== ENCOUNTER 2022-03-23 14:58 | Emergency (ER) | payer OTHER, SELFPAY ==
--- NOTE | ~2022-03-23 | XR_ITS ---
EXAMINATION: XR chest 2V 03/23/2022 15:39 INDICATION: Cough and shortness of breath. History of asthma. PROCEDURE: 2 view chest COMPARISON: No prior studies for comparison. FINDINGS: The lungs are clear. The cardiomediastinal silhouette is within normal limits. There are no pleural effusions. There is no pneumothorax suspected. IMPRESSION: 1: NO ACUTE CARDIOPULMONARY DISEASE. Reviewed, dictated and finalized at [facility]. EF MAN
[2022-03-23 15:15] VITALS: BP 146/91; PULSE 106; RESP 20; TEMP 37.4; O2SAT 100
[2022-03-23 15:19] VITALS: BP 146/91; PULSE 106; RESP 20; TEMP 37.4; O2SAT 100
--- NOTE | 2022-03-23 15:19 | ED.URI ---
HPI - URI/Sore Throat General Chief Complaint: Upper Respiratory Infection Stated Complaint: trouble breathing, tight chest, body ache Time Seen by Provider: 03/23/22 15:20 Source: patient Mode of arrival: ambulatory Limitations: no limitations History of Present Illness HPI Narrative: 27-year-old female presents with complaint of body aches, cough, fatigue, headache, nasal congestion since yesterday. Afebrile. Denies nausea vomiting diarrhea. Reports that she is having some wheezing, chest tightness that she feels is related to her asthma. Is concerned that she may need to be started steroids. all systems reviewed and negative except as noted above. Related Data Allergies Allergy/AdvReac Type Severity Reaction Status Date / Time mushroom Allergy Mild hives Verified 03/23/22 15:18 Review of Systems Review of Systems: CONSTITUTIONAL: Denies fever, chills, or sweats. reports fatigue EYES: Denies visual changes, redness, or discharge. ENT: reports rhinorrhea, congestion. Denies sore throat, or otalgia. CARDIOVASCULAR: Denies chest pain, palpitations, or edema. RESPIRATORY: Reports cough. Denies dyspnea. GASTROINTESTINAL: Denies abdominal pain, nausea, vomiting, or diarrhea. GENITOURINARY: Denies dysuria or hematuria. SKIN: Denies rash or itching. MUSCULOSKELETAL: Denies back pain, joint pain. Reports myalgia. NEUROLOGIC: Denies headache, numbness, or weakness. PSYCHIATRIC: Denies anxiety or depression. All other systems reviewed are negative, except as documented in HPI. [facility] Past Medical History Medical History Abnormal Pap smear of cervix 2020 Anemia Anxiety Asthma Chronic GERD Morbid (severe) obesity due to excess calories Polycystic ovary syndrome Vaginal delivery x1 Surgical History Surgical History History of appendectomy 09/22/21 History of cholecystectomy 11/2011 History of tonsillectomy 2016 Family History Family History Mother Diabetes mellitus Heart disease Cervical ca Dx age 25 Anxiety and depression Father Heart disease Kidney disease, chronic, stage IV (GFR 15-29 ml/min) Asthma Lung cancer Hypertension Anxiety and depression Daughter Asthma Grandparent Lung cancer Anxiety and depression Heart disease Sibling Anxiety and depression Social History Social History Smoking status: Never smoker Second hand tobacco smoke exposure: No Alcohol intake: current Alcohol use details: socially Substance use: current Substance use type: marijuana Last use: occassionally Additional living arrangements comments: Pt has a daughter that lives with her Gender identity (if verbalized by the patient): Female Sexual Orientation (if Verbalized by the Patient): Straight or Heterosexual Agree to blood products: Yes Comments At time of signature, agree with nursing past medical, surgical, social and family history. There is no relevant family history pertinent to the presenting complaint. Exam Narrative: GENERAL: This is a well-nourished, well-developed patient, in no apparent distress. HEAD: normocephalic, atraumatic. EYES: PERRL. Sclera clear/white. Vision is grossly intact. EARS: External ears normal, auditory canals clear and without drainage, TMs normal without perforation. Hearing grossly intact. NOSE: External nose normal with clear nasal drainage, erythema to both nares. THROAT: Mucous membranes moist, Erythema to posterior pharynx. NECK: Neck supple, non-tender without lymphadenopathy, masses or thyromegaly. CARDIOVASCULAR: Regular rate and rhythm without murmurs, gallops, or rubs. RESPIRATORY: Clear to auscultation. Breath sounds equal bilaterally. No wheezes, rales, or rhonchi. SKIN: warm, Dry, intact with no
== END 2022-03-23 15:57 | disposition home or self-care (01) ==
PROVIDERS: Emergency Provider Nurse Practitioner Family; PCP Family Medicine
DX: J06.9 Acute upper respiratory infection, unspecified (principal); Z20.822 Contact with and (suspected) exposure to COVID-19; J45.909 Unspecified asthma, uncomplicated; K21.9 Gastro-esophageal reflux disease without esophagitis; E66.01 Morbid (severe) obesity due to excess calories; Z68.42 Body mass index [BMI] 45.0-49.9, adult; E28.2 Polycystic ovarian syndrome
CPT/HCPCS: 71046; 87426; 99213; C9803; G0463

== ENCOUNTER 2022-12-24 15:02 | Emergency (ER) | payer OTHER, SELFPAY ==
[2022-12-24 15:08] VITALS: BP 149/98; PULSE 77; RESP 20; TEMP 36.3; O2SAT 100
--- NOTE | 2022-12-24 17:09 | ED.ALLEREA ---
HPI - Allergic Reaction General Chief complaint: Allergic Reaction Stated complaint: allergic reaction Time Seen by Provider: 12/24/22 16:12 History of Present Illness HPI narrative: This is a 27-year-old female, with no significant past medical history who presents to the emergency department complaining of itching rash. The patient states she woke this morning and noted some itching rash to the skin of the arm, this began spreading and was associated with itching in the throat and sensation of difficulty swallowing. The patient states he took Claritin at home with gradual improvement of her symptoms. Related Data Allergies Allergy/AdvReac Type Severity Reaction Status Date / Time mushroom Allergy Mild hives Verified 09/06/22 16:28 Review of Systems Review of Systems: CONSTITUTIONAL: Denies fever, chills, or sweats. ENT: Itching sensation in the throat and improve denies rhinorrhea, congestion, sore throat, or otalgia. CARDIOVASCULAR: Denies chest pain, palpitations, or edema. RESPIRATORY: Denies cough or dyspnea. GASTROINTESTINAL: Denies abdominal pain, nausea, vomiting, or diarrhea. GENITOURINARY: Denies dysuria or hematuria. SKIN: Scattered hives now improving MUSCULOSKELETAL: Denies back pain, joint pain, or myalgia. NEUROLOGIC: Denies headache, numbness, dizziness, or weakness. PSYCHIATRIC: Denies anxiety or depression. [facility] Past Medical History Medical History Abnormal Pap smear of cervix 2020 Anemia Anxiety ASCUS with positive high risk HPV cervical Asthma Chronic GERD Morbid (severe) obesity due to excess calories Polycystic ovary syndrome Vaginal delivery x1 Surgical History Surgical History History of appendectomy 09/22/21 History of cholecystectomy 11/2011 History of tonsillectomy 2016 Family History Family History Mother Diabetes mellitus Heart disease Cervical ca Dx age 25 Anxiety and depression Father Heart disease Kidney disease, chronic, stage IV (GFR 15-29 ml/min) Asthma Lung cancer Hypertension Anxiety and depression Daughter Asthma Grandparent Lung cancer Anxiety and depression Heart disease Sibling Anxiety and depression Social History Social History Smoking status: Never smoker Second hand tobacco smoke exposure: No Alcohol intake: current Alcohol use details: socially Substance use: current Substance use type: marijuana Last use: occassionally Living arrangements: with family Additional living arrangements comments: Pt has a daughter that lives with her Occupation/Education: occupation Gender identity (if verbalized by the patient): Female Sexual Orientation (if Verbalized by the Patient): Straight or Heterosexual Agree to blood products: Yes Exam Narrative: GENERAL: Well-developed, well-nourished, and in no acute distress. HEAD: Normocephalic, atraumatic. EYES: PERRLA and EOMI. ENT: Nares clear, no rhinorrhea or epistaxis. Mucous membranes moist. Oropharynx without tonsillar hypertrophy exudate or other lesions. CHEST: Clear to auscultation. No respiratory distress. No wheezes rales or rhonchi HEART: Regular rate and rhythm. No murmur heard. Normal peripheral pulses. ABDOMEN: Soft, nontender, nondistended, normal active bowel sounds. EXTREMITIES: Normal range of motion. No edema. SKIN: Approximately 7-10 urticarial lesions are noted over the anterior abdominal wall without erythema, excoriation or induration. Skin otherwise warm, dry, no rash. NEURO: Alert and oriented x3. Moving all 4 limbs purposefully. PSYCH: Normal mood and affect. Course Course Emergency Course: 17:05 - On exam, the patient's urticaria has largely resolved, aside from a few small lesions on the abdomen. The
[2022-12-24] MEDS: predniSONE 20 MG TABLET PO (17:23)
[2022-12-24 17:28] VITALS: RESP 16
== END 2022-12-24 17:28 | disposition home or self-care (01) ==
PROVIDERS: Emergency Provider Preventive Medicine Aerospace Medicine; PCP Family Medicine
DX: L50.9 Urticaria, unspecified (principal); D64.9 Anemia, unspecified; F41.9 Anxiety disorder, unspecified; J45.909 Unspecified asthma, uncomplicated; K21.9 Gastro-esophageal reflux disease without esophagitis
CPT/HCPCS: 99283; J7512

== ENCOUNTER 2023-10-26 21:50 | Emergency (ER) | payer OTHER, SELFPAY ==
[2023-10-26 21:54] VITALS: BP 153/97; PULSE 86; RESP 20; TEMP 36.4; O2SAT 99
== END 2023-10-26 21:54 | disposition left against medical advice (07) ==
PROVIDERS: PCP Family Medicine
DX: R06.02 Shortness of breath (principal)
CPT/HCPCS: 99199